=== PATIENT | female | born 1990 | race Caucasian/White ===

== ENCOUNTER → 2023-03-27 15:07 | Outpatient (REF) | payer OTHER, SELFPAY | LOC: PNTC 15:07 | PROVIDERS: ATTENDING PHYSICIAN Obstetrics & Gynecology | DX: O35.5XX0 Maternal care for (suspected) damage to fetus by drugs, not applicable or unspecified (principal); O09.11 Supervision of pregnancy with history of ectopic pregnancy, first trimester; O42.90 Premature rupture of membranes, unspecified as to length of time between rupture and onset of labor, unspecified weeks of gestation | CPT/HCPCS: 76815; 76817 ==

== ENCOUNTER → 2023-04-14 15:30 | Outpatient (REF) | payer OTHER, SELFPAY | LOC: PNTC 15:30 | PROVIDERS: ATTENDING PHYSICIAN Obstetrics & Gynecology | DX: O35.5XX0 Maternal care for (suspected) damage to fetus by drugs, not applicable or unspecified (principal); Z87.51 Personal history of pre-term labor | CPT/HCPCS: 76815; 76817 ==

== ENCOUNTER 2023-08-05 18:41 | Inpatient (IN) | payer OTHER, SELFPAY ==
[2023-08-05] MEDS: LR 1000 IV ×2 (19:30→21:15)
[2023-08-05 19:54] LABS: % Basophils 0.3 % (0-2); % Eosinophils 0.2 % (0-6); % Immature Granulocytes 0.4 % (0-0.5); % Lymphocytes 10.2 % (20.5-51.1); % Monocytes 6.4 % (1.7-9.3); % Neutrophils 82.5 % (42.2-75.2); Absolute Lymphocytes 1.1 10^3/uL (1.2-3.4); Absolute Monocytes 0.7 10^3/uL (0.1-0.6); Absolute Neutrophils 8.5 10^3/uL (1.4-6.5); Hematocrit 32.8 % (37.0-47.0); Hemoglobin 11.2 g/dL (12.0-16.0); Mean Corp Hgb Conc. 34.1 g/dL (33.0-37.0); Mean Corpuscular Hgb 27.5 pg (27.0-31.0); Mean Corpuscular Volume 80.4 fL (81.0-99.0); Mean Platelet Volume 11.4 fL (7.4-10.4); Nucleated Red Blood Cells % 0 %; Platelet Count 200 10^3/uL (130-400); Red Blood Cell Count 4.08 10^6/uL (4.20-5.40); Red Cell Dist. Width 12.2 % (11.5-14.5); White Blood Cell Count 10.3 10^3/uL (4.8-10.8)
[2023-08-05] MEDS: FENTANYL/BUPIVACAINE 100 EPIDURAL (21:03)
[2023-08-05] MEDS: SUBLIMAZE 100 MCG EPIDURAL (21:03)
[2023-08-05] MEDS: PITOCIN 30 UNITS/NSS 500 ML IV (23:04)
[2023-08-05 23:36] VITALS: BP 110/69; BMI 26.1
[2023-08-06 05:58] LABS: Hematocrit 28.3 % (37.0-47.0); Hemoglobin 9.7 g/dL (12.0-16.0)
[2023-08-06] MEDS: SYNTHROID 50 MCG PO (06:07)
[2023-08-06] MEDS: MOTRIN 600 MG PO ×3 (06:07→22:39)
[2023-08-06 06:54] LABS: TSH Reflex To Free T4 0.75 uIU/ml (0.47-4.68)
[2023-08-06] MEDS: PRENATAL PLUS 1 TABLET PO (08:35)
[2023-08-06] MEDS: SENOKOT-S 1 TABLET PO (08:35)
[2023-08-06 14:24] LABS: Syphilis/T. pallidum Ab Reflex Negative (Negative)
[2023-08-07] MEDS: SYNTHROID 50 MCG PO (05:47)
[2023-08-07] MEDS: PRENATAL PLUS 1 TABLET PO (08:48)
[2023-08-07] MEDS: MOTRIN 600 MG PO (08:49)
[2023-08-07] MEDS: SENOKOT-S 1 TABLET PO (08:50)
== END 2023-08-07 11:38 | disposition home or self-care (01) | DRG 807 ==
LOC: LDRP 18:41
PROVIDERS: ADMITTING PHYSICIAN Obstetrics & Gynecology
PROC: 0KQM0ZZ Repair Perineum Muscle, Open Approach (ICD-10-PCS; 2023-08-05)
PROC: 10E0XZZ Delivery of Products of Conception, External Approach (ICD-10-PCS; 2023-08-05)
DX: O48.0 Post-term pregnancy (principal); Z37.0 Single live birth; Z3A.40 40 weeks gestation of pregnancy; O76 Abnormality in fetal heart rate and rhythm complicating labor and delivery; O69.81X0 Labor and delivery complicated by cord around neck, without compression, not applicable or unspecified; O32.6XX0 Maternal care for compound presentation, not applicable or unspecified; O70.1 Second degree perineal laceration during delivery; O99.284 Endocrine, nutritional and metabolic diseases complicating childbirth; E03.9 Hypothyroidism, unspecified
CPT/HCPCS: 36415; 84443; 85014; 85018; 85025; 86780; 86850; 86900; 86901